=== PATIENT | male | born 1985 | race African-American/Black ===

== ENCOUNTER 2017-07-04 08:38 | Emergency (ER) | payer OTHER ==
[~2017-07-04] VITALS: Wt 79.0 kg
--- NOTE | 2017-07-04 09:24 | ERD ---
ER Documentation Chief Complaint Date/Time DATE: 07/04/17 TIME: 09:20 Chief Complaint Wants placement for [place] [facility] HPI Homeless gentleman who is here because he wants placement [place] a [place] [facility]. The patient says that he has schizoaffective and bipolar disorder but is not having an exacerbation. The patient admits that he does use narcotics and that when he comes off of them he gets kind of paranoid. She is he has not used narcotics in 2 days and he felt paranoid yesterday but is not feeling that way today. No visual or auditory hallucinations no suicidal or homicidal thoughts ROS All systems reviewed and are negative except as per history of present illness. Allergies Allergies: Coded Allergies: No Known Allergy (Unverified , 07/04/17) FmHx Family History: No coronary disease Physical Exam Vitals Vital Signs Date Time Temp Pulse Resp B/P Pulse Ox O2 Delivery O2 Flow Rate FiO2 07/04/17 08:57 98.7 91 18 136/78 99 Physical Exam Const: [] Head: Atraumatic normocephalic Eyes: Normal Conjunctiva, PERRLA ENT: Normal External Ears, Nose and Mouth. Neck: Full range of motion..~ No meningismus. Resp: Clear to auscultation bilaterally, no increased work Cardio: Regular rate and rhythm, no murmurs Abd: Soft, non tender, non distended. Normal bowel sounds Skin: No petechiae or rashes Back: No midline or flank tenderness Ext: No cyanosis, or edema Neur: Awake and alert Psych: Pleasant non-hallucinatory, suicidal or homicidal ideations Procedures/MDM The patient was seen by social human services assistants and given [facility] information. Departure Diagnosis: Primary Impression: Paranoia Condition: Stable Patient Instructions: Psychosis MARK DAVID DO Jul 04, 2017 09:23
[2017-07-04 09:42] VITALS: BP 121/71; PULSE 79; RESP 18; TEMP 98
== END 2017-07-04 09:43 | disposition home or self-care (01) ==
LOC: E/R 08:38
DX: F22 Delusional disorders (principal); R40.2142 Coma scale, eyes open, spontaneous, at arrival to emergency department; R40.2252 Coma scale, best verbal response, oriented, at arrival to emergency department; R40.2362 Coma scale, best motor response, obeys commands, at arrival to emergency department
CPT/HCPCS: 99282